=== PATIENT | female | born 1945 | race Caucasian/White ===

== ENCOUNTER → 2018-01-26 11:38 | Outpatient (CLI) | payer OTHER, SELFPAY ==
[2018-01-26 13:40] LABS: Cholesterol 239 mg/dL (140-199); HDL Cholesterol 77 mg/dL (40-60); LDL Cholesterol Calculated 139 mg/dL (<100); Triglycerides 113 mg/dL (35-150)
[2018-01-26 13:44] LABS: High Sensitivity CRP - Cardiac 0.7 mg/L (1.0-3.0)
[2018-01-26 14:10] LABS: Thyroid Stimulating Hormone 9.36 uIU/mL (0.47-4.68)
== END ==
PROVIDERS: PCP Nurse Practitioner Family; Visit Provider Nurse Practitioner Family
DX: Z13.6 Encounter for screening for cardiovascular disorders (principal); Z86.39 Personal history of other endocrine, nutritional and metabolic disease; Z13.220 Encounter for screening for lipoid disorders
CPT/HCPCS: 36415; 80061; 84443; 86140